=== PATIENT | female | born 2000 | race Asian ===

== ENCOUNTER 2020-05-02 21:02 | Emergency (ER) | payer OTHER, SELFPAY ==
[2020-05-02] VITALS (7 sets, daily range): BP systolic 95–111; BP diastolic 50–67; PULSE 42–98; RESP 18–29; TEMP 36.6; O2SAT 96–99; BMI 19.4
[2020-05-02 21:45] LABS: INR 1.2 (0.9-1.3); Prothrombin Time 14.2 SECONDS (10.1-12.7)
[2020-05-02 21:48] LABS: PTT Partial Thromboplastin Tim 25 SECONDS (26.4-36.2)
[2020-05-02 21:57] LABS: Add Manual Diff / Slide Review NO; Basophils Absolute Auto 0 /uL (0-100); Basophils Percent Auto 0.2 % (0-2); Eosinophils Absolute Auto 0 /uL (0-450); Eosinophils Percent Auto 0.1 % (2-4); Hematocrit 43.3 % (36-46); Hemoglobin 14.1 g/dL (12.0-16.0); Lymphocytes Absolute Auto 600 /uL (1100-4500); Lymphocytes Percent Auto 4.8 % (25-40); Mean Corpuscular HGB Conc 32.7 % (30-36); Mean Corpuscular Volume 85.7 fL (80-100); Monocytes Absolute Auto 300 /uL (0-900); Monocytes Percent Auto 2.4 % (3-14); Neutrophils Absolute Auto 12300 /uL (1500-7000); Neutrophils Percent Auto 92.5 % (50-75); Platelet Count 255 X10^3/uL (150-400); Red Blood Cell Count 5.05 X10^6/uL (4.0-5.2); Red Cell Distribution Width 13.6 % (11.6-14.8); White Blood Cell Count 13.3 X10^3/uL (4.5-11.0)
[2020-05-02] MEDS: SODIUM CHLORIDE 0.9% 1,000 ML 1000 ML IV (22:06)
[2020-05-02 22:07] LABS: Alanine Aminotransferase 15 IU/L (<35); Albumin Globulin Ratio 1.5 (1.0-2.8); Alkaline Phosphatase 62 U/L (38-126); Aspartate Aminotransferase 33 IU/L (14-36); BUN Creatinine Ratio 21.3 (6-22); Bilirubin Total 0.8 mg/dL (0.2-1.3); Blood Urea Nitrogen 13 mg/dL (7-17); Calcium 9.5 mg/dL (8.4-10.2); Carbon Dioxide 23 mmol/L (22-32); Chloride 107 mmol/L (98-107); Estimated Glomerular Filt Rate > 60.0 mL/min (>60); Globulin 3.4 g/dL (1.7-4.1); Glucose 118 mg/dL (70-100); HEMOLYSIS 52 (0-50); Lipase 57 U/L (23-300); Sodium 142 mmol/L (137-145); Total Protein 8.4 g/dL (6.3-8.2)
--- NOTE | 2020-05-02 23:00 | ED.NAVMDI ---
HPI - Nausea/Vomiting/Diarrhea General Chief complaint: Nausea/Vomiting/Diarrhea Stated complaint: vomiting Time Seen by Provider: 05/02/20 22:36 Source: patient Mode of arrival: Ambulatory Limitations: no limitations History of Present Illness HPI Narrative: Patient here with boyfriend. Complains numerous episodes of nonbloody emesis starting about 11 hours ago. Feeling better now. History of anorexia and bulimia. However today she was not trying to induce any vomiting. Was not anxious. No recent illness. No cough cold congestion. LMP 2 days ago. Denies . No urinary complaints. Does smoke marijuana daily since 16 years of age. Denies abdominal pain except for when no vomiting. MD complaint: nausea and vomiting Related Data Home Medications Medication Instructions Recorded Confirmed albuterol sulfate [Proventil HFA] 0.09 mg IH PRN #0 11/21/10 Previous Rx's Medication Instructions Recorded citalopram 30 mg PO QAM #45 tab 11/04/16 alprazolam 0 mg PO Q8HP PRN #10 tab 11/26/16 ondansetron 4 mg PO Q8H PRN #10 tab 05/03/20 pantoprazole [Protonix] 40 mg PO DAILY #14 tab 05/03/20 Allergies Allergy/AdvReac Type Severity Reaction Status Date / Time aspirin [ASPIRIN] Allergy Intermediate Verified 05/03/20 01:18 penicillin G [PENICILLIN G] Allergy Intermediate Verified 05/03/20 01:18 Review of Systems Review of Systems Narrative: GENERAL: Denies chills, fatigue, malaise, fever, sweats. HEENT: Denies sinus pain, ear pain, sore throat, difficulty swallowing, dizziness. RESPIRATORY: Denies dyspnea, cough, wheezing, hemoptysis, sputum. CARDIOVASCULAR: Denies chest pain, palpitations, orthopnea, edema, GASTROINTESTINAL: Complains nausea, vomiting, denies abdominal pain, diarrhea, constipation, melena. : Denies dysuria, frequency, incontinence, hematuria, urinary retention. MUSCULOSKELETAL: denies weakness, joint pain, or bony pain SKIN: Denies rash, skin lesions NEUROLOGIC: Denies weakness, headache, numbness, change in speech, confusion, seizures, incoordination. PSYCHIATRIC: No concerning psychosocial issues. ROS Unobtainable: All systems reviewed & are unremarkable except as noted in HPI and below Patient History Social History Smoking Status: Current every day smoker Smoking Status: Current every day smoker tobacco type: vaping alcohol intake frequency: a few times a week Substance Use Type: marijuana Exam Narrative Exam Narrative: GENERAL: patient appears stated age. Well-nourished, well-developed patient, in no distress, not toxic HEAD: Atraumatic. Normocephalic. EYES: Pupils equal round and reactive. Extraocular motions intact. No scleral icterus. No injection or drainage. ENT: Nose without bleeding, purulent drainage. Throat without erythema, tonsillar hypertrophy or exudate. Airway patent. NECK: Trachea midline. Non tender CARDIOVASCULAR: Regular rate and rhythm without murmurs, gallops, or rubs. RESPIRATORY: Clear to auscultation. Breath sounds equal bilaterally. No wheezes, rales, or rhonchi. GASTROINTESTINAL: Abdomen soft, non-tender, nondistended. EXTREMITIES: No edema or joint tenderness. BACK: Nontender without deformity or crepitance. No flank tenderness. NEURO: AOx4. SKIN: No rash or erythema of visible areas PSYCH: Not anxious, is cooperative Initial Vital Signs Initial Vital Signs: Vital Signs Temperature 98 F 05/02/20 21:12 Pulse Rate 98 H 05/02/20 21:12 Respiratory Rate 18 05/02/20 21:12 Blood Pressure 111/55 L 05/02/20 21:12 Pulse Oximetry 98 05/02/20 21:12 Course Course Course Narrative: Patient able tolerate p.o. during stay here after IV fluids and Zofran Orders Ordered: ED Orders 05/02/20 21:31 Complete Blood Count AUTO DIFF Stat Comprehensive Metabolic Panel Stat Lipase Stat Partial Thromboplastin Time Stat Prothrombin Time INR Stat 05/02/20 23:50 Urine Microscopic Stat Discontinued Medications Sodium Chloride (Normal Saline 0.9%) 1,000 mls @ 1,000 mls/hr IV BOLUS ONE Stop: 05/02/20 23:01 Last Infusion: 05/02/20 23:59 Dose: 0 mls/hr Documented by: Admin: 05/02/20 22:06 Dose: 1,000 mls/hr Documented by: MICHELLE Sodium Chloride (Normal Saline 0.9%) 1,000 mls @ 1,000 mls/hr IV BOLUS ONE Stop: 05/03/20 01:26 Last Infusion: 05/03/20 01:37 Dose: 0 mls/hr Documented by: Admin: 05/03/20 00:35 Dose: 1,000 mls/hr Documented by: DUY Ondansetron HCl (Zofran) 4 mg IV NOW ONE Stop: 05/02/20 23:00 Last Admin: 05/02/20 23:06 Dose: 4 mg Documented by: JOHNATHAN Pantoprazole Sodium (Protonix) 40 mg IV NOW ONE Stop: 05/03/20 00:28 Last Admin: 05/03/20 00:35 Dose: 40 mg Documented by: DUY Reevaluation(s) Reevaluation #1: Feeling much better after IV fluids Zofran. is eating. Desires 1 more L of normal saline after review of urinalysis with ketones Time: 00:29 Vital Signs Vital signs: Vital Signs - 8 hr 05/02/20 21:12 05/02/20 21:58 05/02/20 21:59 Temperature 98 F Pulse Rate 98 H 51 L Respiratory Rate 18 Blood Pressure 111/55 L 99/52 L Pulse Oximetry 98 96 98 05/02/20 22:00 05/02/20 22:30 05/02/20 23:00 Temperature Pulse Rate 53 L 42 L 45 L Respiratory Rate 29 H 19 Blood Pressure 95/50 L 104/59 L 104/67 Pulse Oximetry 98 99 98 05/02/20 23:30 05/03/20 00:00 05/03/20 00:03 Temperature Pulse Rate 50 L 58 L Respiratory Rate 21 21 Blood Pressure 101/59 L 96/56 L Pulse Oximetry 99 100 05/03/20 00:30 05/03/20 01:00 05/03/20 01:30 Temperature Pulse Rate 52 L 50 L 47 L Respiratory Rate 23 19 19 Blood Pressure 98/55 L 100/51 L 96/59 L Pulse Oximetry 98 99 99 MDM - Nausea/Vomiting/Diarrhea Differential Diagnosis Differential diagnosis: Likely gastroenteritis and other (Cannabis hyperemesis syndrome) Lab Data Attestation: I reviewed the patient's lab results. Result diagrams: 05/02/20 21:31 05/02/20 21:31 Labs: Lab Results 10/08/20 10/08/20 10/08/20 Range/Units 21:31 21:31 21:31 WBC 13.3 H (4.5-11.0) X10^3/uL RBC 5.05 (4.0-5.2) X10^6/uL Hgb 14.1 (12.0-16.0) g/dL Hct 43.3 (36-46) % MCV 85.7 (80-100) fL MCH 28.0 (26-34) PG MCHC 32.7 (30-36) % RDW 13.6 (11.6-14.8) % Plt Count 255 (150-400) X10^3/uL Neut % (Auto) 92.5 H (50-75) % Lymph % (Auto) 4.8 L (25-40) % [place] % (Auto) 2.4 L (3-14) % Eos % (Auto) 0.1 L (2-4) % Baso % (Auto) 0.2 (0-2) % Neut # (Auto) 85746 H (1342-7244) /uL Lymph # (Auto) 600 L (3841-7959) /uL [place] # (Auto) 300 (0-900) /uL Eos # (Auto) 0 (0-450) /uL Baso # (Auto) 0 (0-100) /uL PT 14.2 H (10.1-12.7) SECONDS INR 1.2 (0.9-1.3) APTT 25 L (26.4-36.2) SECONDS Sodium 142 (137-145) mmol/L Potassium 4.0 (3.4-5.1) mmol/L Chloride 107 (98-107) mmol/L Carbon Dioxide 23 (22-32) mmol/L BUN 13 (7-17) mg/dL Creatinine 0.61 (0.52-1.04) mg/dL Estimated GFR > 60.0 (>60) mL/min BUN/Creatinine Ratio 21.3 (6-22) Glucose 118 H (70-100) mg/dL Calcium 9.5 (8.4-10.2) mg/dL Total Bilirubin 0.8 (0.2-1.3) mg/dL AST 33 (14-36) IU/L ALT 15 (<35) IU/L Alkaline Phosphatase 62 (38-126) U/L Total Protein 8.4 H (6.3-8.2) g/dL Albumin 5.0 (3.5-5.0) g/dL Globulin 3.4 (1.7-4.1) g/dL Albumin/Globulin Ratio 1.5 (1.0-2.8) Lipase 57 (23-300) U/L Urine RBC (0-5/HPF) Urine WBC (0-5/HPF) Ur Squamous Epith Cells (0-5/HPF) Urine Bacteria (None) Urine Mucus (Negative) Ur Culture Indicated? 05/02/20 Range/Units 23:50 WBC (4.5-11.0) X10^3/uL RBC (4.0-5.2) X10^6/uL Hgb (12.0-16.0) g/dL Hct (36-46) % MCV (80-100) fL MCH (26-34) PG MCHC (30-36) % RDW (11.6-14.8) % Plt Count (150-400) X10^3/uL Neut % (Auto) (50-75) % Lymph % (Auto) (25-40) % [place] % (Auto) (3-14) % Eos % (Auto) (2-4) % Baso % (Auto) (0-2) % Neut # (Auto) (6599-6984) /uL Lymph # (Auto) (7695-1592) /uL [place] # (Auto) (0-900) /uL Eos # (Auto) (0-450) /uL Baso # (Auto) (0-100) /uL PT (10.1-12.7) SECONDS INR (0.9-1.3) APTT (26.4-36.2) SECONDS Sodium (137-145) mmol/L Potassium (3.4-5.1) mmol/L Chloride (98-107) mmol/L Carbon Dioxide (22-32) mmol/L BUN (7-17) mg/dL Creatinine (0.52-1.04) mg/dL Estimated GFR (>60) mL/min BUN/Creatinine Ratio (6-22) Glucose (70-100) mg/dL Calcium (8.4-10.2) mg/dL Total Bilirubin (0.2-1.3) mg/dL AST (14-36) IU/L ALT (<35) IU/L Alkaline Phosphatase (38-126) U/L Total Protein (6.3-8.2) g/dL Albumin (3.5-5.0) g/dL Globulin (1.7-4.1) g/dL Albumin/Globulin Ratio (1.0-2.8) Lipase (23-300) U/L Urine RBC 1-5/hpf (0-5/HPF) Urine WBC 1-5/hpf (0-5/HPF) Ur Squamous Epith Cells 0-1 /hpf (0-5/HPF) Urine Bacteria Few (2-10) H (None) Urine Mucus 2+ H (Negative) Ur Culture Indicated? Cult not indicated Point of Care Testing Test Results Negative Urine Dip Bedside Urine Glucose Negative Bedside Urine Bilirubin - Negative Bedside Urine Ketone +++ 80 Urine Specific [place] 1.015 Bedside Urine Occult Blood +++ Bedside Urine pH 7.0 Bedside Urine Protein + 30 Bedside Urine Urobilinogen - Negative Bedside Urine Nitrite - Negative Bedside Urine Leukocytes - Negative Esterase ECG Data Attestation: I personally reviewed and interpreted this ECG as follows: Interpretation: Sinus bradycardia rate [address] elevation or depression. MDM Narrative Medical decision making narrative: White count noted. No fever. Nonspecific leukocytosis may be due to demargination with emesis. Abdomen is soft nontender. No peritoneal signs. No McBurney point tenderness. No CT indicated this time. Appropriate for discharge home. Discharge Plan Departure Patient Disposition: Home Clinical Impression: Acute gastritis Qualifiers: Gastritis type: unspecified gastritis Gastritis bleeding: without bleeding Qualified Code(s): K29.00 - Acute gastritis without bleeding Discharge Date/Time: 05/03/20 01:39 Instructions: DI for Gastritis, DI for Vomiting -- Adult Activity Restrictions/Additional Instructions: Return if worse. Keep well hydrated. See family doctor in a week for recheck. Called provided clinic number tomorrow for office appointment. Return if worse or if any questions or concerns. Prescription sent to [facility] pharmacy here in [facility] Prescriptions: New pantoprazole [Protonix] 40 mg tablet,delayed release (DR/EC) 40 mg PO DAILY Qty: 14 RF: 0 ondansetron 4 mg tablet,disintegrating 4 mg PO Q8H PRN (Reason: nausea and vomiting) Qty: 10 RF: 0 No Action albuterol sulfate [Proventil HFA] 90 MCG/PUFF HFA aerosol inhaler 0.09 mg IH PRN Qty: 0 RF: 0 citalopram 20 MG tablet 30 mg PO QAM Qty: 45 RF: 2 alprazolam 0.25 MG tablet 0 mg PO Q8HP PRNQty: 10 RF: 0 Referrals: [facility] [Outside]
[2020-05-02] MEDS: ONDANSETRON 4 MG/2 ML INJ IV (23:06)
[2020-05-03] VITALS: PULSE 50; RESP 21; O2SAT 99
[2020-05-03 00:03] VITALS: BP 96/56; PULSE 58; RESP 21; O2SAT 100
[2020-05-03 00:30] VITALS: BP 98/55; PULSE 52; RESP 23; O2SAT 98
[2020-05-03 00:30] LABS: Bacteria Urine Few (2-10); Culture Indicated Urine Cult Not Indicated; Mucus Urine 2+ (Negative); RBC Urine 1-5/HPF (0-5/HPF); Squamous Epithelial Cell Urine 0-1 /HPF (0-5/HPF); WBC Urine 1-5/HPF (0-5/HPF)
[2020-05-03] MEDS: PANTOPRAZOLE 40 MG VIAL IV (00:35)
[2020-05-03] MEDS: SODIUM CHLORIDE 0.9% 1,000 ML 1000 ML IV (00:35)
[2020-05-03 01:00] VITALS: BP 100/51; PULSE 50; RESP 19; O2SAT 99
[2020-05-03 01:30] VITALS: BP 96/59; PULSE 47; RESP 19; O2SAT 99
== END 2020-05-03 01:39 | disposition home or self-care (01) ==
PROVIDERS: Emergency Provider Emergency Medicine; Family Provider Family Medicine
DX: K29.00 Acute gastritis without bleeding (principal); R11.2 Nausea with vomiting, unspecified
CPT/HCPCS: 36415; 80053; 81003; 81015; 81025; 83690; 85025; 85610; 85730; 93005; 96361; 96374; 96375; 99284; C9113; J2405

== ENCOUNTER 2021-03-02 22:27 | Emergency (ER) | payer OTHER, SELFPAY ==
[2021-03-02 22:39] VITALS: BP 151/109; PULSE 87; RESP 20; TEMP 36.6; O2SAT 100
[2021-03-02 23:02] LABS: Add Manual Diff / Slide Review NO; Basophils Absolute Auto 100 /uL (0-100); Basophils Percent Auto 0.5 % (0-2); Eosinophils Absolute Auto 200 /uL (0-450); Eosinophils Percent Auto 2.1 % (2-4); Hematocrit 39.9 % (36-46); Hemoglobin 13.5 g/dL (12.0-16.0); Lymphocytes Absolute Auto 1800 /uL (1100-4500); Lymphocytes Percent Auto 16.7 % (25-40); Mean Corpuscular HGB Conc 33.7 % (30-36); Mean Corpuscular Hemoglobin 27.8 PG (26-34); Mean Corpuscular Volume 82.6 fL (80-100); Monocytes Absolute Auto 1100 /uL (0-900); Monocytes Percent Auto 10.1 % (3-14); Neutrophils Absolute Auto 7700 /uL (1500-7000); Neutrophils Percent Auto 70.6 % (50-75); Platelet Count 315 X10^3/uL (150-400); Red Blood Cell Count 4.83 X10^6/uL (4.0-5.2); Red Cell Distribution Width 13.5 % (11.6-14.8); White Blood Cell Count 10.8 X10^3/uL (4.5-11.0)
[2021-03-02] MEDS: ONDANSETRON 4 MG/2 ML INJ IV (23:07)
[2021-03-02] MEDS: SODIUM CHLORIDE 0.9% 1,000 ML 1000 ML IV (23:07)
[2021-03-02 23:11] LABS: Alanine Aminotransferase 15 IU/L (<35); Albumin 4.6 g/dL (3.5-5.0); Albumin Globulin Ratio 1.4 (1.0-2.8); Alkaline Phosphatase 81 U/L (38-126); Aspartate Aminotransferase 29 IU/L (14-36); BUN Creatinine Ratio 14.5 (6-22); Bilirubin Total 0.6 mg/dL (0.2-1.3); Blood Urea Nitrogen 8 mg/dL (7-17); Calcium 9.6 mg/dL (8.4-10.2); Carbon Dioxide 19 mmol/L (22-32); Chloride 107 mmol/L (98-107); Estimated Glomerular Filt Rate > 60.0 mL/min (>60); Globulin 3.3 g/dL (1.7-4.1); Glucose 121 mg/dL (70-100); HEMOLYSIS < 15 (0-50); Lipase 101 U/L (23-300); Potassium 3.1 mmol/L (3.4-5.1); Sodium 138 mmol/L (137-145); Total Protein 7.9 g/dL (6.3-8.2)
[2021-03-03] VITALS (17 sets, daily range): BP systolic 96–125; BP diastolic 50–70; PULSE 50–101; RESP 14–23; TEMP 36.4; O2SAT 94–100
--- NOTE | 2021-03-03 03:32 | ED_ITS ---
HPI - Abdominal Pain <Dinora Kilpatrick DO - Last Filed: 03/04/21 12:11> General Chief Complaint: Abdominal Pain Stated Complaint: ABD PAIN Time Seen by Provider: 03/03/21 02:56 Source: patient Mode of arrival: Ambulatory Limitations: no limitations History of Present Illness HPI narrative: This is a 20-year-old female who is brought to the emergency department for abdominal pain and nausea vomiting. Patient has had intermittent abdominal pains for some time. They were seen here once prior to April 2020 for similar symptoms. Patient has on and off had continuing symptoms but has required coming to the emergency department. Patient states they felt hot on and off and had hot flashes recently. Patient complains of upper abdominal discomfort. Does not radiate to the back. Of patient has had normal bowel movements with no diarrhea constipation. No dysuria, urgency or frequency. No vaginal bleeding or discharge. Patient does take quetiapine for reported ADHD and PTSD. Patient does have a history of anorexia bulimia per prior report. New surgeries. No other daily medications. Patient does use tobacco, occasional alcohol. Patient does use marijuana daily for abdominal symptoms and in order to eat because they are nauseated so frequently. Patient has an allergy to penicillin. They are accompanied by their roommate. Related Data Home Medications Medication Instructions Recorded Confirmed albuterol sulfate 90 mcg/actuation 0.09 mg IH PRN #0 11/21/10 11/08/20 aerosol inhaler (Proventil HFA) quetiapine 100 mg tablet 100 mg PO tab 11/08/20 11/08/20 Previous Rx's Medication Instructions Recorded ondansetron 4 mg disintegrating 4 mg PO Q6H PRN #14 tab 03/03/21 tablet Allergies Allergy/AdvReac Type Severity Reaction Status Date / Time aspirin [ASPIRIN] Allergy Intermediate Verified 11/08/20 09:35 penicillin G [PENICILLIN G] Allergy Intermediate Verified 11/08/20 09:35 horse dander Allergy Mild Verified 11/08/20 09:35 kiwi Allergy Mild swelling Verified 11/08/20 09:35 and tongue blisters Review of Systems <Dinora Kilpatrick DO - Last Filed: 03/04/21 12:11> Review of Systems ROS Unobtainable: All systems reviewed & are unremarkable except as noted in HPI and below Patient History <Dinora Kilpatrick DO - Last Filed: 03/04/21 12:11> Medical History ADHD Headache Heavy menstrual period (~2014) Irregular menstrual cycle (~2015) Migraines Osteopenia (~2018) Overdose Painful menstrual periods (~2014) Scoliosis (~2018) Shoulder pain (~2014) Suicidal intent Vasovagal syncope Family History (Updated 12/09/20 @ 21:07 by Josette Causey) Mother Ovarian cancer Social History Smoking Status: Current every day smoker Tobacco: How many years used: 3 Smokeless tobacco user: other (nicotine vape 6mg ) quit status: considering quitting alcohol intake: current (1 glass of wine / 3 months ) substance use type: marijuana (Uses for pain and anxiety ) Smoking Status: Current every day smoker tobacco type: vaping alcohol intake frequency: a few times a week Substance Use Type: marijuana Exam <Dinora Kilpatrick DO - Last Filed: 03/04/21 12:11> Narrative Exam Narrative: GENERAL: Alert and oriented x three, thin female in moderate distress. Patient was early are ambulating in the department and looked fairly well on exam in the room she is dry heaving in the room at this time. HEENT: Head normocephalic, atraumatic, EOMI, pupils reactive, face symmetric, moist mucous membranes NECK: Supple, full range of motion CARDIOVASCULAR: Regular rate and rhythm without murmurs, rubs or gallops. RESPIRATORY: Breath sounds equal bilaterally, no wheezes rales or rhonchi. ABDOMEN: Soft, nontender to palpation. Nondistended. Normoactive bowel sounds all 4 quadrants. No guarding or rebound, rigidity, no mass : No CVA tenderness EXTREMITIES: Normal range of motion, no clubbing or edema. Neurovascularly intact NEUROLOGICAL: Cranial nerves II through XII grossly intact. Moving all extremities SKIN: Warm, dry, no petechiae, no rashes or lesions. Initial Vital Signs Initial Vital Signs: Vital Signs Temperature 97.8 F 03/02/21 22:39 Pulse Rate 87 03/02/21 22:39 Respiratory Rate 20 03/02/21 22:39 Blood Pressure 151/109 H 03/02/21 22:39 Pulse Oximetry 100 03/02/21 22:39 <Henri Brian DO - Last Filed: 03/03/21 09:54> Initial Vital Signs Initial Vital Signs: Vital Signs Temperature 97.8 F 03/02/21 22:39 Pulse Rate 87 03/02/21 22:39 Respiratory Rate 20 03/02/21 22:39 Blood Pressure 151/109 H 03/02/21 22:39 Pulse Oximetry 100 03/02/21 22:39 Course <Dinora Kilpatrick DO - Last Filed: 03/04/21 12:11> Orders Ordered: Discontinued Medications Diphenhydramine HCl (Diphenhydramine 50 Mg/Ml Vial) 25 mg IV NOW ONE Stop: 03/03/21 04:49 Last Admin: 03/03/21 04:56 Dose: 25 mg Documented by: MICHELLE Haloperidol (Haloperidol 5 Mg/Ml Vial) 5 mg IV NOW ONE Stop: 03/03/21 04:49 Last Admin: 03/03/21 04:56 Dose: 5 mg Documented by: MICHELLE Sodium Chloride (Normal Saline 0.9%) 1,000 mls @ 1,000 mls/hr IV BOLUS ONE Stop: 03/02/21 23:55 Last Infusion: 03/03/21 00:02 Dose: 0 mls/hr Documented by: Admin: 03/02/21 23:07 Dose: 1,000 mls/hr Documented by: MICHELLE Sodium Chloride (Normal Saline 0.9%) 1,000 mls @ 1,000 mls/hr IV BOLUS ONE Stop: 03/03/21 06:05 Last Infusion: 03/03/21 06:46 Dose: 0 mls/hr Documented by: Admin: 03/03/21 05:08 Dose: 1,000 mls/hr Documented by: MICHELLE POTASSIUM CHLORIDE IN WATER (Potassium Cl 10 Meq/100 Ml Abigail) 10 meq in 100 mls @ 100 mls/hr IV Q1H GRIS Stop: 03/03/21 09:14 Last Infusion: 03/03/21 09:37 Dose: 0 mls/hr Documented by: Admin: 03/03/21 08:34 Dose: 100 mls/hr Documented by: MARIO ALBERTO Infusion: 03/03/21 08:25 Dose: 100 mls/hr Documented by: MARIO ALBERTO Admin: 03/03/21 07:25 Dose: 100 mls/hr Documented by: MARIO ALBERTO Infusion: 03/03/21 07:17 Dose: 100 mls/hr Documented by: MARIO ALBERTO Admin: 03/03/21 06:17 Dose: 100 mls/hr Documented by: Infusion: 03/03/21 06:17 Dose: 0 mls/hr Documented by: Admin: 03/03/21 05:11 Dose: 100 mls/hr Documented by: MICHELLE Ketorolac Tromethamine (Ketorolac 30 Mg/Ml Vial) 30 mg IV NOW ONE Stop: 03/03/21 03:31 Last Admin: 03/03/21 03:41 Dose: Not Given Documented by: MICHELLE Lorazepam (Lorazepam 2 Mg/Ml Inj) 1 mg IV NOW ONE Stop: 03/03/21 05:09 Last Admin: 03/03/21 05:10 Dose: 1 mg Documented by: MICHELLE Ondansetron HCl (Ondansetron 4 Mg/2 Ml Inj) 4 mg IV NOW ONE Stop: 03/02/21 22:57 Last Admin: 03/02/21 23:07 Dose: 4 mg Documented by: MICHELLE Ondansetron HCl (Ondansetron 4 Mg/2 Ml Inj) 4 mg IV NOW ONE Stop: 03/03/21 03:31 Last Admin: 03/03/21 03:35 Dose: 4 mg Documented by: MICHELLE Pantoprazole Sodium (Pantoprazole 40 Mg Vial) 40 mg IV NOW ONE Stop: 03/03/21 03:32 Last Admin: 03/03/21 03:35 Dose: 40 mg Documented by: MICHELLE Reevaluation(s) Reevaluation #1: Patient was feeling improved after 2nd round of Zofran and Protonix. Patient symptoms had resolved. During our discussion patient felt like the symptoms were starting to come back. We discussed trying a different medication that and that there is the possibility of hyperemesis cannibus component as she uses marijuana quite frequently so Benadryl and Haldol was ordered. Patient seemed to have a dystonic reaction to the medication wanting to pull off everything off but atypically she became diaphoretic. Patient was given some Ativan. She had some improvement after fluids were started and she had had some known mild hypokalemia so this was replaced as well. Patient's repeat EKG continues to show a sinus bradycardia, QTC reviewed. Patient felt much better after Ativan. Continue to monitor here in the department and patient signed out to Dr. Brian while completing potassium replacement IV and for repeat evaluation and final disposition. Patient and roomate at bedside and I discussed that I suspect she reacted to the Haldol although she did also receive benadryl and should avoid this medication in the future. Vital Signs Vital signs: Vital Signs - 8 hr 03/03/21 02:27 03/03/21 04:29 03/03/21 04:30 Temperature 97.5 F L Pulse Rate 63 76 Respiratory Rate 18 Blood Pressure 111/54 L 114/63 Pulse Oximetry 99 100 100 03/03/21 04:32 03/03/21 05:00 03/03/21 05:06 Temperature Pulse Rate 71 80 63 Respiratory Rate 19 Blood Pressure 107/53 L 110/70 98/50 L Pulse Oximetry 100 100 94 03/03/21 05:30 03/03/21 05:33 03/03/21 06:00 Temperature Pulse Rate 101 H 53 L 50 L Respiratory Rate 23 15 14 Blood Pressure 106/51 L 96/51 L Pulse Oximetry 99 100 100 03/03/21 06:30 03/03/21 07:00 03/03/21 07:30 Temperature Pulse Rate 52 L 52 L 55 L Respiratory Rate 14 14 18 Blood Pressure 96/54 L 99/58 L Pulse Oximetry 99 99 99 03/03/21 07:31 03/03/21 08:00 03/03/21 08:30 Temperature Pulse Rate 51 L 51 L 59 L Respiratory Rate 17 17 17 Blood Pressure 121/57 L 122/56 L 109/66 Pulse Oximetry 100 100 99 03/03/21 09:00 03/03/21 09:30 Temperature Pulse Rate 63 70 Respiratory Rate 15 23 Blood Pressure 125/63 106/56 L Pulse Oximetry 100 100 <Henri Brian, DO - Last Filed: 03/03/21 09:54> Orders Ordered: Discontinued Medications Diphenhydramine HCl (Diphenhydramine 50 Mg/Ml Vial) 25 mg IV NOW ONE Stop: 03/03/21 04:49 Last Admin: 03/03/21 04:56 Dose: 25 mg Documented by: MICHELLE Haloperidol (Haloperidol 5 Mg/Ml Vial) 5 mg IV NOW ONE Stop: 03/03/21 04:49 Last Admin: 03/03/21 04:56 Dose: 5 mg Documented by: MICHELLE Sodium Chloride (Normal Saline 0.9%) 1,000 mls @ 1,000 mls/hr IV BOLUS ONE Stop: 03/02/21 23:55 Last Infusion: 03/03/21 00:02 Dose: 0 mls/hr Documented by: Admin: 03/02/21 23:07 Dose: 1,000 mls/hr Documented by: MICHELLE Sodium Chloride (Normal Saline 0.9%) 1,000 mls @ 1,000 mls/hr IV BOLUS ONE Stop: 03/03/21 06:05 Last Infusion: 03/03/21 06:46 Dose: 0 mls/hr Documented by: Admin: 03/03/21 05:08 Dose: 1,000 mls/hr Documented by: MICHELLE POTASSIUM CHLORIDE IN WATER (Potassium Cl 10 Meq/100 Ml Abigail) 10 meq in 100 mls @ 100 mls/hr IV Q1H GRIS Stop: 03/03/21 09:14 Last Infusion: 03/03/21 09:37 Dose: 0 mls/hr Documented by: Admin: 03/03/21 08:34 Dose: 100 mls/hr Documented by: MARIO ALBERTO Infusion: 03/03/21 08:25 Dose: 100 mls/hr Documented by: MARIO ALBERTO Admin: 03/03/21 07:25 Dose: 100 mls/hr Documented by: MARIO ALBERTO Infusion: 03/03/21 07:17 Dose: 100 mls/hr Documented by: MARIO ALBERTO Admin: 03/03/21 06:17 Dose: 100 mls/hr Documented by: Infusion: 03/03/21 06:17 Dose: 0 mls/hr Documented by: Admin: 03/03/21 05:11 Dose: 100 mls/hr Documented by: MICHELLE Ketorolac Tromethamine (Ketorolac 30 Mg/Ml Vial) 30 mg IV NOW ONE Stop: 03/03/21 03:31 Last Admin: 03/03/21 03:41 Dose: Not Given Documented by: MICHELLE Lorazepam (Lorazepam 2 Mg/Ml Inj) 1 mg IV NOW ONE Stop: 03/03/21 05:09 Last Admin: 03/03/21 05:10 Dose: 1 mg Documented by: MICHELLE Ondansetron HCl (Ondansetron 4 Mg/2 Ml Inj) 4 mg IV NOW ONE Stop: 03/02/21 22:57 Last Admin: 03/02/21 23:07 Dose: 4 mg Documented by: MICHELLE Ondansetron HCl (Ondansetron 4 Mg/2 Ml Inj) 4 mg IV NOW ONE Stop: 03/03/21 03:31 Last Admin: 03/03/21 03:35 Dose: 4 mg Documented by: MICHELLE Pantoprazole Sodium (Pantoprazole 40 Mg Vial) 40 mg IV NOW ONE Stop: 03/03/21 03:32 Last Admin: 03/03/21 03:35 Dose: 40 mg Documented by: MICHELLE Reevaluation(s) Reevaluation #1: Patient was feeling improved after 2nd round of Zofran and Protonix. Patient symptoms had resolved. During our discussion patient felt like the symptoms were starting to come back. We discussed trying a different medication that they do use marijuana quite frequently so Benadryl and Haldol was ordered. Patient seemed to have a reaction to the medication. She became diaphoretic and quite uncomfortable and wanted to run away and take everything off. Patient was given some Ativan. She had some improvement fluids were started and she had had some mild hypokalemia so this was replaced as well. Patient's repeat EKG continues to show a sinus bradycardia, QTC is 465. Patient felt much better after Ativan. Continue to monitor here in the department. Vital Signs Vital signs: Vital Signs - 8 hr 03/03/21 02:27 03/03/21 04:29 03/03/21 04:30 Temperature 97.5 F L Pulse Rate 63 76 Respiratory Rate 18 Blood Pressure 111/54 L 114/63 Pulse Oximetry 99 100 100 03/03/21 04:32 03/03/21 05:00 03/03/21 05:06 Temperature Pulse Rate 71 80 63 Respiratory Rate 19 Blood Pressure 107/53 L 110/70 98/50 L Pulse Oximetry 100 100 94 03/03/21 05:30 03/03/21 05:33 03/03/21 06:00 Temperature Pulse Rate 101 H 53 L 50 L Respiratory Rate 23 15 14 Blood Pressure 106/51 L 96/51 L Pulse Oximetry 99 100 100 03/03/21 06:30 03/03/21 07:00 03/03/21 07:30 Temperature Pulse Rate 52 L 52 L 55 L Respiratory Rate 14 14 18 Blood Pressure 96/54 L 99/58 L Pulse Oximetry 99 99 99 03/03/21 07:31 03/03/21 08:00 03/03/21 08:30 Temperature Pulse Rate 51 L 51 L 59 L Respiratory Rate 17 17 17 Blood Pressure 121/57 L 122/56 L 109/66 Pulse Oximetry 100 100 99 03/03/21 09:00 03/03/21 09:30 Temperature Pulse Rate 63 70 Respiratory Rate 15 23 Blood Pressure 125/63 106/56 L Pulse Oximetry 100 100 MDM - Abdominal Pain <Dinora Kilpatrick, DO - Last Filed: 03/04/21 12:11> Lab Data Result diagrams: 03/02/21 22:50 03/02/21 22:50 Labs: Lab Results 03/02/21 03/02/21 Range/Units 22:50 22:50 WBC 10.8 (4.5-11.0) X10^3/uL RBC 4.83 (4.0-5.2) X10^6/uL Hgb 13.5 (12.0-16.0) g/dL Hct 39.9 (36-46) % MCV 82.6 (80-100) fL MCH 27.8 (26-34) PG MCHC 33.7 (30-36) % RDW 13.5 (11.6-14.8) % Plt Count 315 (150-400) X10^3/uL Neut % (Auto) 70.6 (50-75) % Lymph % (Auto) 16.7 L (25-40) % Kendall % (Auto) 10.1 (3-14) % Eos % (Auto) 2.1 (2-4) % Baso % (Auto) 0.5 (0-2) % Neut # (Auto) 7700 H (4030-0272) /uL Lymph # (Auto) 1800 (1731-6444) /uL Kendall # (Auto) 1100 H (0-900) /uL Eos # (Auto) 200 (0-450) /uL Baso # (Auto) 100 (0-100) /uL Sodium 138 (137-145) mmol/L Potassium 3.1 L (3.4-5.1) mmol/L Chloride 107 (98-107) mmol/L Carbon Dioxide 19 L (22-32) mmol/L BUN 8 (7-17) mg/dL Creatinine 0.55 (0.52-1.04) mg/dL Estimated GFR > 60.0 (>60) mL/min BUN/Creatinine Ratio 14.5 (6-22) Glucose 121 H (70-100) mg/dL Calcium 9.6 (8.4-10.2) mg/dL Total Bilirubin 0.6 (0.2-1.3) mg/dL AST 29 (14-36) IU/L ALT 15 (<35) IU/L Alkaline Phosphatase 81 (38-126) U/L Total Protein 7.9 (6.3-8.2) g/dL Albumin 4.6 (3.5-5.0) g/dL Globulin 3.3 (1.7-4.1) g/dL Albumin/Globulin Ratio 1.4 (1.0-2.8) Lipase 101 (23-300) U/L Point of care testing: Point of Care Testing Test Results Negative Urine Dip Bedside Urine Glucose Negative Bedside Urine Bilirubin - Negative Bedside Urine Ketone + 15 Urine Specific [place] 1.025 Bedside Urine Occult Blood - Negative Bedside Urine pH 6 Bedside Urine Protein - Negative Bedside Urine Urobilinogen - Negative Bedside Urine Nitrite - Negative Bedside Urine Leukocytes - Negative Esterase Imaging Data Abdominal x-ray: Radiologist's Impression: Nonspecific that abdomen series. No chest or abdominal abnormality identified. ECG Data Attestation: I personally reviewed and interpreted this ECG as follows: Prior ECG tracings: available for review Interpretation: Sinus bradycardia rate 59, MT 184 QRS 84 and QTC of 423. No acute ST changes appreciated. Sinus bradycardia rate of 50 2p are 158 QRS 88 QTC 465. No acute ST changes appreciated at this time. MDM Narrative Medical decision making narrative: This is a 20-year-old female comes in with complaint of chronic abdominal pain and vomiting in the setting of heavy marijuana use. Patient was seen approximately a year ago symptoms that had resolved. Today she has had improvement with nausea medications such as Zofran but recurred while she was in the department. She has a nontender, benign abdominal exam with reassuring labs and a negative urine and point of care urine showing only ketones. Patient was given fluids. We are reviewing her labs and findings and during our evaluation she began to feel worse again. We tried some alternative medications which are patient appeared to have a reaction to. EKG was repeated, patient was given fluids and potassium was supplemented. Her symptoms resolved after Ativan and patient was signed out to Dr. Brian for final dispositiona Dr brian: Received turned over from day provider. Reviewed patient's history and physical and labs. Performed my own independent exam. Her potassium has been replaced. She has been ambulatory. Will send home with nausea medication and also instructions to follow-up with her primary doctor. She expressed understanding and agreement. <Henri Brian, DO - Last Filed: 03/03/21 09:54> Lab Data Labs: Lab Results 03/02/21 03/02/21 Range/Units 22:50 22:50 WBC 10.8 (4.5-11.0) X10^3/uL RBC 4.83 (4.0-5.2) X10^6/uL Hgb 13.5 (12.0-16.0) g/dL Hct 39.9 (36-46) % MCV 82.6 (80-100) fL MCH 27.8 (26-34) PG MCHC 33.7 (30-36) % RDW 13.5 (11.6-14.8) % Plt Count 315 (150-400) X10^3/uL Neut % (Auto) 70.6 (50-75) % Lymph % (Auto) 16.7 L (25-40) % Kendall % (Auto) 10.1 (3-14) % Eos % (Auto) 2.1 (2-4) % Baso % (Auto) 0.5 (0-2) % Neut # (Auto) 7700 H (1918-8117) /uL Lymph # (Auto) 1800 (9011-8818) /uL Kendall # (Auto) 1100 H (0-900) /uL Eos # (Auto) 200 (0-450) /uL Baso # (Auto) 100 (0-100) /uL Sodium 138 (137-145) mmol/L Potassium 3.1 L (3.4-5.1) mmol/L Chloride 107 (98-107) mmol/L Carbon Dioxide 19 L (22-32) mmol/L BUN 8 (7-17) mg/dL Creatinine 0.55 (0.52-1.04) mg/dL Estimated GFR > 60.0 (>60) mL/min BUN/Creatinine Ratio 14.5 (6-22) Glucose 121 H (70-100) mg/dL Calcium 9.6 (8.4-10.2) mg/dL Total Bilirubin 0.6 (0.2-1.3) mg/dL AST 29 (14-36) IU/L ALT 15 (<35) IU/L Alkaline Phosphatase 81 (38-126) U/L Total Protein 7.9 (6.3-8.2) g/dL Albumin 4.6 (3.5-5.0) g/dL Globulin 3.3 (1.7-4.1) g/dL Albumin/Globulin Ratio 1.4 (1.0-2.8) Lipase 101 (23-300) U/L Point of care testing: Point of Care Testing Test Results Negative Urine Dip Bedside Urine Glucose Negative Bedside Urine Bilirubin - Negative Bedside Urine Ketone + 15 Urine Specific [place] 1.025 Bedside Urine Occult Blood - Negative Bedside Urine pH 6 Bedside Urine Protein - Negative Bedside Urine Urobilinogen - Negative Bedside Urine Nitrite - Negative Bedside Urine Leukocytes - Negative Esterase MDM Narrative Medical decision making narrative: Dr brian: Received turned over from day provider. Reviewed patient's history and physical and labs. Performed my own independent exam. Her potassium has been replaced. She has been ambulatory. Will send home with nausea medication and also instructions to follow-up with her primary doctor. She expressed understanding and agreement. Discharge Plan Departure Patient Disposition: Home Clinical Impression: Vomiting, Abdominal pain, Hypokalemia Instructions: DI for Vomiting -- Adult Activity Restrictions/Additional Instructions: I do recommend that you contact your primary doctor for a follow-up. If you do not have a primary doctor you can contact the health human resources vice president at [phone]. Be sure to increase your fluid intake. Return to the emergency department for any new or worsening symptoms Prescriptions: New ondansetron 4 mg tablet,disintegrating 4 mg PO Q6H PRN (Reason: nausea and vomiting) Qty: 14 RF: 0 No Action albuterol sulfate [Proventil HFA] 90 MCG/PUFF HFA aerosol inhaler 0.09 mg IH PRN Qty: 0 RF: 0 quetiapine 100 mg tablet 100 mg PO RF: 0 Referrals: Luh Lane ARNP [Primary Care Provider] -
[2021-03-03] MEDS: ONDANSETRON 4 MG/2 ML INJ IV (03:35)
[2021-03-03] MEDS: PANTOPRAZOLE 40 MG VIAL IV (03:35)
--- NOTE | 2021-03-03 03:42 | DI.RAD.S_ITS ---
PROCEDURE: XR ACUTE ABDOMEN SERIES INDICATIONS: vomiting, epigastric pain, chest pain TECHNIQUE: One view chest and two views of the abdomen were acquired. COMPARISON: None. FINDINGS: Surgical changes and devices: None. Chest: Lungs are clear. Heart size is normal. No pleural effusions. No pneumoperitoneum. Abdomen: Scattered bowel gas. No dilated loops of bowel. No air-fluid levels. No suspicious calcifications. Visualized solid organ contours appear normal. Bones: No suspicious bony lesions. Minimal scoliosis. IMPRESSION: Nonobstructive bowel gas pattern. CT abdomen pelvis with IV contrast could be considered for further evaluation. No acute cardiopulmonary abnormality. This report is concordant with the overnight preliminary interpretation. Dictated by: Rigo Blount M.D. on 03/03/2021 at 8:07 Approved by: Rigo Blount M.D. on 03/03/2021 at 8:09
[2021-03-03] MEDS: diphenhydrAMINE 50 MG/ML VIAL 25 MG IV (04:56)
[2021-03-03] MEDS: HALOPERIDOL 5 MG/ML VIAL IV (04:56)
--- NOTE | 2021-03-03 05:03 | PC.NURSE ---
Pt began to have what appears to be an adverse reaction to one of the IV medications. She started getting very agitated, diaphoretic, and a crawling out of her skin sensation. MD brought to the bedside. Verbal order for 1mg Ativan. Pt calmed and RT called for a repeat EKG. A few minutes after the Ativan was given the pt states she feels sleepy but much better
[2021-03-03] MEDS: SODIUM CHLORIDE 0.9% 1,000 ML 1000 ML IV (05:08)
[2021-03-03] MEDS: LORazepam 2 MG/ML INJ 1 MG IV (05:10)
[2021-03-03] MEDS: POTASSIUM CHLORIDE IN WATER 10 MEQ/100 ML PIGGYBACK 100 MEQ IV ×4 (05:11→08:34)
== END 2021-03-03 10:08 | disposition home or self-care (01) ==
PROVIDERS: Emergency Medicine; Emergency Provider Emergency Medicine; PCP Registered Nurse
DX: E87.6 Hypokalemia (principal); R11.2 Nausea with vomiting, unspecified; R10.9 Unspecified abdominal pain
CPT/HCPCS: 36415; 74022; 80053; 81003; 81025; 83690; 85025; 93005; 96361; 96365; 96366; 96375; 96376; 99284; C9113; J1200; J1630; J2060; J2405

== ENCOUNTER 2021-03-03 20:48 | Emergency (ER) | payer OTHER, MEDICAID, SELFPAY ==
[2021-03-03 20:57] VITALS: BP 121/72; PULSE 98; RESP 20; TEMP 36.3; O2SAT 99
[2021-03-03] MEDS: DIPHENOXYLATE/ATROP 2.5/0.025 TABLET 2 EACH PO (21:04)
== END 2021-03-03 22:11 | disposition left against medical advice (07) ==
PROVIDERS: Emergency Provider Emergency Medicine; PCP Registered Nurse
CPT/HCPCS: 99283

== ENCOUNTER → 2022-02-24 16:59 | Outpatient (CLI) | payer OTHER, SELFPAY ==
[2022-02-24 18:12] LABS: Platelet Count 235 X10^3/uL (150-400)
[2022-02-24 18:27] LABS: BUN Creatinine Ratio 10.3 (6-22); Blood Urea Nitrogen 6 mg/dL (7-17); Calcium 8.8 mg/dL (8.4-10.2); Carbon Dioxide 28 mmol/L (22-32); Chloride 104 mmol/L (98-107); Estimated Glomerular Filt Rate > 60 mL/min (>60); Glucose 84 mg/dL (70-100); HEMOLYSIS < 15 (0-50); Sodium 139 mmol/L (137-145)
== END ==
PROVIDERS: PCP Registered Nurse Diabetes Educator; Referring Provider Dentist Oral and Maxillofacial Surgery; Visit Provider Dentist Oral and Maxillofacial Surgery
DX: E44.1 Mild protein-calorie malnutrition (principal)
CPT/HCPCS: 36415; 80048; 85049

== ENCOUNTER 2022-06-04 09:37 | Emergency (ER) | payer OTHER, MEDICAID, SELFPAY ==
[2022-06-04] VITALS (7 sets, daily range): BP systolic 120–137; BP diastolic 76–95; PULSE 45–99; RESP 13–32; O2SAT 91–100; BMI 19.2
[2022-06-04] MEDS: ONDANSETRON 4 MG ODT SL (10:25)
[2022-06-04 12:16] LABS: Add Manual Diff / Slide Review NO; Basophils Absolute Auto 0 /uL (0-100); Basophils Percent Auto 0.6 % (0-2); Eosinophils Absolute Auto 0 /uL (0-450); Eosinophils Percent Auto 0.4 % (2-4); Hematocrit 38.5 % (36-46); Hemoglobin 13.1 g/dL (12.0-16.0); Lymphocytes Absolute Auto 600 /uL (1100-4500); Lymphocytes Percent Auto 9.9 % (25-40); Mean Corpuscular HGB Conc 34.1 % (30-36); Mean Corpuscular Hemoglobin 28.5 PG (26-34); Mean Corpuscular Volume 83.5 fL (80-100); Monocytes Absolute Auto 400 /uL (0-900); Monocytes Percent Auto 5.9 % (3-14); Neutrophils Absolute Auto 5300 /uL (1500-7000); Neutrophils Percent Auto 83.2 % (50-75); Platelet Count 252 X10^3/uL (150-400); Red Blood Cell Count 4.61 X10^6/uL (4.0-5.2); Red Cell Distribution Width 13.5 % (11.6-14.8); White Blood Cell Count 6.4 X10^3/uL (4.5-11.0)
[2022-06-04 12:24] LABS: Alanine Aminotransferase 19 IU/L (<35); Albumin 4.6 g/dL (3.5-5.0); Albumin Globulin Ratio 1.4 (1.0-2.8); Alkaline Phosphatase 61 U/L (38-126); Aspartate Aminotransferase 24 IU/L (14-36); Bilirubin Total 0.8 mg/dL (0.2-1.3); Blood Urea Nitrogen 11 mg/dL (7-17); Calcium 9.5 mg/dL (8.4-10.2); Carbon Dioxide 21 mmol/L (22-32); Chloride 104 mmol/L (98-107); Estimated Glomerular Filt Rate > 60 mL/min (>60); Globulin 3.3 g/dL (1.7-4.1); Glucose 117 mg/dL (70-100); HEMOLYSIS < 15 (0-50); Lipase 109 U/L (23-300); Potassium 3.2 mmol/L (3.4-5.1); Sodium 140 mmol/L (137-145); Total Protein 7.9 g/dL (6.3-8.2)
--- NOTE | 2022-06-04 13:02 | ED_ITS ---
HPI - Abdominal Pain General Chief Complaint: Abdominal Pain Stated Complaint: Vomiting bile, abd pain all morning Time Seen by Provider: 06/04/22 13:01 Source: patient Mode of arrival: Ambulatory Limitations: no limitations History of Present Illness HPI narrative: This is a 21 year old female with history of intermittent abdominal pain and nausea vomiting who states she had EGD which showed gastritis about a year ago. Patient is on quetiapine for ADHD, PTSD and depression. She states this episode started this morning she does use marijuana, she uses nicotine but denies any IV drugs. She denies any other medications. No new surgeries. Patient uses occasional alcohol but not regularly. She is allergic to penicillin. She is accompanied by her roommate today. Patient denies fevers but has felt sweaty today. She denies chest pain or shortness of breath. Persistent vomiting she has pain but she states it started with the vomiting. She states she is had a bout normal bowel movement the last 24 hours, no diarrhea constipation, no black or bloody stools. Denies any urinary symptoms. Patient does note on her last visit she received a medication which she states made her wanted to pull out her IV and run away, she does not recall what it is called but she received multiple medications suspect it may have been Haldol. Related Data Home Medications Medication Instructions Recorded Confirmed quetiapine 200 mg tablet (Seroquel) 200 mg PO BEDTIME 11/24/21 12/16/21 bupropion HCl 300 mg 24 hr tablet, 300 mg PO QAM 11/28/21 12/16/21 extended release (Wellbutrin XL) Previous Rx's Medication Instructions Recorded famotidine 40 mg tablet (Pepcid) 40 mg PO DAILY #30 tabs 06/04/22 ondansetron 4 mg disintegrating 4 mg PO QID PRN nausea and 06/04/22 tablet vomiting #10 tabs Allergies Allergy/AdvReac Type Severity Reaction Status Date / Time aspirin [ASPIRIN] Allergy Intermediate Verified 12/16/21 13:30 penicillin G [PENICILLIN G] Allergy Intermediate Verified 12/16/21 13:30 horse dander Allergy Mild Verified 12/16/21 13:30 kiwi Allergy Mild swelling Verified 12/16/21 13:30 and tongue blisters Review of Systems Review of Systems ROS Unobtainable: All systems reviewed & are unremarkable except as noted in HPI and below Patient History Medical History ADHD Headache Heavy menstrual period (~2014) Irregular menstrual cycle (~2016) Migraines Osteopenia (~2018) Overdose Painful menstrual periods (~2014) Scoliosis (~2019) Shoulder pain (~2015) Suicidal intent Vasovagal syncope Family History Mother Ovarian cancer Social History Smoking Status: Current every day smoker Tobacco: How many years used: 3 Smokeless tobacco user: other (nicotine vape 6mg ) quit status: considering quitting alcohol intake: current (1 glass of wine / 3 months ) substance use type: marijuana (Uses for pain and anxiety ) Smoking Status: Current every day smoker tobacco type: vaping alcohol intake frequency: a few times a week Substance Use Type: marijuana Exam Narrative Exam Narrative: GENERAL: Alert and oriented x three, moderate distress patient is actively dry heaving when I walk into the room. HEENT: Head normocephalic, atraumatic, EOMI, pupils reactive, face symmetric, moist mucous membranes NECK: Supple, full range of motion CARDIOVASCULAR: Regular rate and rhythm without murmurs, rubs or gallops. RESPIRATORY: Breath sounds equal bilaterally, no wheezes rales or rhonchi. ABDOMEN: Soft, nontender. Nondistended. Normoactive bowel sounds all 4 quadrants. No guarding or rebound, rigidity, no mass : No CVA tenderness EXTREMITIES: Normal range of motion, no clubbing or edema. Neurovascularly intact NEUROLOGICAL: Cranial nerves II through XII grossly intact. Moving all extremities SKIN: Warm, dry, no petechiae, no rashes or lesions. Initial Vital Signs Initial Vital Signs: Vital Signs Pulse Rate 46 L 06/04/22 13:33 Pulse Oximetry 100 06/04/22 13:33 Course Orders Ordered: Discontinued Medications Diphenhydramine HCl (Diphenhydramine 50 Mg/Ml Vial) 50 mg IV NOW ONE Stop: 06/04/22 13:13 Last Admin: 06/04/22 13:31 Dose: 50 mg Documented By: DELBERT Haloperidol (Haloperidol 5 Mg/Ml Vial) 5 mg IV NOW ONE Stop: 06/04/22 13:07 Last Admin: 06/04/22 13:58 Dose: Not Given Documented By: NR Sodium Chloride (Normal Saline 0.9%) 1,000 mls @ 1,000 mls/hr IV BOLUS ONE Stop: 06/04/22 14:02 Last Infusion: 06/04/22 15:50 Dose: 0 mls/hr Documented By: Admin: 06/04/22 13:31 Dose: 1,000 mls/hr Documented By: DELBERT Sodium Chloride (Normal Saline 0.9%) 1,000 mls @ 1,000 mls/hr IV BOLUS ONE Stop: 06/04/22 15:50 Last Infusion: 06/04/22 16:50 Dose: 0 mls/hr Documented By: Admin: 06/04/22 15:51 Dose: 1,000 mls/hr Documented By: NR Lorazepam (Lorazepam 2 Mg/Ml Inj) 1 mg IV NOW ONE Stop: 06/04/22 14:52 Last Admin: 06/04/22 15:07 Dose: 1 mg Documented By: DELBERT Ondansetron HCl (Ondansetron 4 Mg Odt) 4 mg SL NOW ONE Stop: 06/04/22 10:24 Last Admin: 06/04/22 10:25 Dose: 4 mg Documented By: NR Pantoprazole Sodium (Pantoprazole 40 Mg Vial) 40 mg IV NOW ONE Stop: 06/04/22 13:13 Last Admin: 06/04/22 13:30 Dose: 40 mg Documented By: DELBERT Reevaluation(s) Reevaluation #1: Patient has small amount of clear liquid in emesis bag. States some help with prior medication. Will try additional dose. Will give 2nd liter of fluids, reviewed todays findings with patient and lorazepam IV Time: 14:51 Vital Signs Vital signs: Vital Signs - 8 hr 06/04/22 13:33 Pulse Rate 46 L Pulse Oximetry 100 MDM - Abdominal Pain Lab Data Result diagrams: 06/04/22 11:51 06/04/22 11:51 Labs: Lab Results 06/04/22 06/04/22 06/04/22 Range/Units 11:51 11:51 11:51 WBC 6.4 (4.5-11.0) X10^3/uL RBC 4.61 (4.0-5.2) X10^6/uL Hgb 13.1 (12.0-16.0) g/dL Hct 38.5 (36-46) % MCV 83.5 (80-100) fL MCH 28.5 (26-34) PG MCHC 34.1 (30-36) % RDW 13.5 (11.6-14.8) % Plt Count 252 (150-400) X10^3/uL Neut % (Auto) 83.2 H (50-75) % Lymph % (Auto) 9.9 L (25-40) % [place] % (Auto) 5.9 (3-14) % Eos % (Auto) 0.4 L (2-4) % Baso % (Auto) 0.6 (0-2) % Neut # (Auto) 5300 (4072-4426) /uL Lymph # (Auto) 600 L (7448-3573) /uL [place] # (Auto) 400 (0-900) /uL Eos # (Auto) 0 (0-450) /uL Baso # (Auto) 0 (0-100) /uL Sodium 140 (137-145) mmol/L Potassium 3.2 L (3.4-5.1) mmol/L Chloride 104 (98-107) mmol/L Carbon Dioxide 21 L (22-32) mmol/L BUN 11 (7-17) mg/dL Creatinine 0.61 (0.52-1.04) mg/dL Estimated GFR > 60 (>60) mL/min BUN/Creatinine Ratio 18.0 (6-22) Glucose 117 H (70-100) mg/dL Calcium 9.5 (8.4-10.2) mg/dL Total Bilirubin 0.8 (0.2-1.3) mg/dL AST 24 (14-36) IU/L ALT 19 (<35) IU/L Alkaline Phosphatase 61 (38-126) U/L Total Protein 7.9 (6.3-8.2) g/dL Albumin 4.6 (3.5-5.0) g/dL Globulin 3.3 (1.7-4.1) g/dL Albumin/Globulin Ratio 1.4 (1.0-2.8) Lipase 109 (23-300) U/L Serum , Qual Negative (Negative) ECG Data Attestation: I personally reviewed and interpreted this ECG as follows: Prior ECG tracings: available for review Interpretation: Sinus bradycardia rate of 57 WA 150 QRS 84 QTC of 473. No acute ST changes appreciated. Patient's V2 was inverted on prior but no other ST changes appreciated. MDM Narrative Medical decision making narrative: This is a 21-year-old female with intermittent abdominal pain and nausea vomiting. She is had EGD in the past which she states found gastritis. She does use marijuana regularly. She has not had any other recent infectious symptoms. Patient's labs show slightly low potassium, CBC does not show changes to platelets, hemoglobin or WBCs does have a leftward shift, bicarb is 21, glucose is 117 with normal LFTs. Patient had improvement with medications. She would like to return home although occasional dry heave. Does ask for prescription. Discharge Plan Departure Patient Disposition: Home Clinical Impression: Vomiting, Hypokalemia Instructions: DI for Vomiting -- Adult Activity Restrictions/Additional Instructions: Follow-up for recheck if her symptoms are not improving. You may take Zofran 1 tablet every 6 hours as needed. I would recommend taking Pepcid daily for gastritis. Prescription sent to [facility] in [place]. Please return for fevers, worsening symptoms, persistent vomiting, lightheade dness or passing out, black or bloody stools, if you are not having a bowel movements or passing any gas or flatus with persistent vomiting or other new or concerning changes. Prescriptions: New ondansetron 4 mg tablet,disintegrating 4 mg PO QID PRN (Reason: nausea and vomiting) Qty: 10 0RF famotidine [Pepcid] 40 mg tablet 40 mg PO DAILY Qty: 30 0RF No Action quetiapine [Seroquel] 200 mg tablet 200 mg PO BEDTIME bupropion HCl [Wellbutrin XL] 300 mg tablet extended release 24 hr 300 mg PO QAM Referrals: Berry Cedeno ARNP [Primary Care Provider] - Visit Report Forms: Patient Portal/API
--- NOTE | 2022-06-04 13:19 | DI.RAD.S_ITS ---
PROCEDURE: XR ACUTE ABDOMEN SERIES INDICATIONS: vomiting/abd pain TECHNIQUE: One view chest and two views of the abdomen were acquired. COMPARISON: [facility], CR, XR ACUTE ABDOMEN SERIES, 03/03/2021, 3:43. FINDINGS: Surgical changes and devices: None. Chest: Lungs are clear. Heart size is normal. No pleural effusions. No pneumoperitoneum. Abdomen: Bowel gas pattern is normal. No suspicious calcifications. Visualized solid organ contours appear normal. Bones: No suspicious bony lesions. IMPRESSION: Nonspecific bowel gas pattern. Dictated by: Henri Zuleta M.D. on 06/04/2022 at 14:39 Approved by: Henri Zuleta M.D. on 06/04/2022 at 14:40
[2022-06-04] MEDS: PANTOPRAZOLE 40 MG VIAL IV (13:30)
[2022-06-04] MEDS: diphenhydrAMINE 50 MG/ML VIAL IV (13:31)
[2022-06-04] MEDS: SODIUM CHLORIDE 0.9% 1,000 ML 1000 ML IV ×2 (13:31→15:51)
[2022-06-04] MEDS: LORazepam 2 MG/ML INJ 1 MG IV (15:07)
[2022-06-04 15:35] LABS: Pregnancy Test Serum,Qual Negative (Negative)
--- NOTE | 2022-06-04 16:56 | PC.NURSE ---
pt requests wheelchair to leave, charge nurse concerned why pt was able to walk in but not walk out. spoke with pt and md, pt states she is just feeling really tired and weak from meds and throwing up all day. md is okay with pt wheelchairing out
== END 2022-06-04 16:51 | disposition home or self-care (01) ==
PROVIDERS: Emergency Provider Emergency Medicine; PCP Registered Nurse Diabetes Educator
DX: E87.6 Hypokalemia (principal); R11.2 Nausea with vomiting, unspecified; R10.9 Unspecified abdominal pain
CPT/HCPCS: 36415; 74022; 80053; 83690; 84703; 85025; 93005; 93010; 96361; 96374; 96375; 99284; C9113; J1200; J2060

== ENCOUNTER → 2022-06-17 11:49 | Outpatient (CLI) | payer OTHER, MEDICAID, SELFPAY ==
[2022-06-17 12:48] LABS: Influenza A - CEPHEID Flu A POSITIVE (NEGATIVE); Influenza B - CEPHEID Flu B NEGATIVE (NEGATIVE); Respiratory Syncytial Virus Negative (Negative)
[2022-06-17 12:49] LABS: COVID-19 CEPHEID 4-PLEX PCR Negative (Negative)
== END ==
PROVIDERS: PCP Registered Nurse Diabetes Educator; Visit Provider Nurse Practitioner Family
DX: R05.9 Cough, unspecified (principal)
CPT/HCPCS: 0241U

== ENCOUNTER → 2023-11-29 13:25 | Outpatient (CLI) | payer OTHER, MEDICAID, SELFPAY | PROVIDERS: PCP Registered Nurse Diabetes Educator; Visit Provider Physician Assistant | DX: J02.9 Acute pharyngitis, unspecified (principal) | CPT/HCPCS: 87070 ==

== ENCOUNTER 2023-12-30 22:38 | Emergency (ER) | payer OTHER, MEDICAID, SELFPAY ==
[2023-12-30 22:45] VITALS: BP 125/80; PULSE 92; RESP 18; TEMP 35.8; O2SAT 100; BMI 22.1
[2023-12-31] MEDS: KETOROLAC 30 MG/ML VIAL IM (01:59)
== END 2023-12-31 03:23 | disposition left against medical advice (07) ==
PROVIDERS: Emergency Provider Emergency Medicine; PCP Registered Nurse Diabetes Educator
DX: M54.9 Dorsalgia, unspecified (principal)
CPT/HCPCS: 81003; 81025; 99283; J1885

== ENCOUNTER → 2024-01-03 15:04 | Outpatient (CLI) | payer OTHER, MEDICAID, SELFPAY ==
--- NOTE | 2024-01-03 15:06 | DI.RAD.S_ITS ---
PROCEDURE: XR LUMBAR SPINE MIN 4V INDICATIONS: Lumbar pain TECHNIQUE: 5 views of the lumbar spine were acquired, including bilateral oblique views. COMPARISON: None. FINDINGS: Bones: 5 nonrib-bearing vertebrae are present. Slight rightward curvature. No vertebral body compression fractures. No suspicious bony lesions. Soft tissues: Overlying bowel gas pattern is normal. No suspicious soft tissue calcifications. Oblique images: No pars defects. IMPRESSION: No acute bony abnormality. Dictated by: Gordon Padilla M.D. on 01/03/2024 at 15:53 Approved by: Gordon Padilla M.D. on 01/03/2024 at 15:54
== END ==
PROVIDERS: PCP Registered Nurse Diabetes Educator; Referring Provider Nurse Practitioner Family; Visit Provider Nurse Practitioner Family
DX: M54.50 Low back pain, unspecified (principal)
CPT/HCPCS: 72110

== ENCOUNTER → 2024-01-25 16:34 | Outpatient (CLI) | payer SELFPAY | PROVIDERS: PCP Registered Nurse Diabetes Educator; Visit Provider Nurse Practitioner Family | DX: J02.9 Acute pharyngitis, unspecified (principal) | CPT/HCPCS: 87070 ==

== ENCOUNTER → 2024-09-11 11:54 | Outpatient (CLI) | payer OTHER, SELFPAY | PROVIDERS: PCP Registered Nurse Diabetes Educator; Visit Provider Registered Nurse | DX: J02.9 Acute pharyngitis, unspecified (principal) | CPT/HCPCS: 87070 ==

== ENCOUNTER → 2025-05-15 14:48 | Outpatient (CLI) | payer OTHER, SELFPAY ==
[2025-05-15 15:32] LABS: Influenza A - CEPHEID Flu A NEGATIVE (NEGATIVE); Influenza B - CEPHEID Flu B NEGATIVE (NEGATIVE)
[2025-05-15 15:41] LABS: COVID-19 CEPHEID 4-PLEX PCR Negative (Negative)
== END ==
PROVIDERS: Visit Provider Nurse Practitioner Family
DX: R05.1 Acute cough (principal); J02.9 Acute pharyngitis, unspecified
CPT/HCPCS: 87070; 87637

== ENCOUNTER → 2025-05-29 17:41 | Outpatient (CLI) | payer OTHER, SELFPAY | PROVIDERS: Visit Provider Chiropractor | DX: J02.9 Acute pharyngitis, unspecified (principal) | CPT/HCPCS: 87070 ==

== ENCOUNTER 2025-06-25 22:45 | Emergency (ER) | payer OTHER, SELFPAY ==
[2025-06-25 22:51] VITALS: BP 117/60; PULSE 103; RESP 20; TEMP 38.9; O2SAT 97; BMI 25.8
--- NOTE | 2025-06-25 23:13 | ED.URI ---
HPI - URI/Sore Throat General Chief Complaint: Dental/Oral Stated Complaint: swollen lymph nodes in neck, sob, since am Time Seen by Provider: 06/25/25 23:07 Source: patient Mode of arrival: Ambulatory History of Present Illness HPI Narrative: Patient is a 24-year-old healthy person, uses they them pronouns, history of asthma presenting today with sore throat. Reports that they were feeling normal state of health yesterday. However today having sore throat and fever 103 here in triage. They are managing their own secretions no significant shortness of breath. But also reports using albuterol inhaler daily not on any kind of maintenance inhaler. No wheezing or chest tightness at this time. Records reviewed also show sore throat in April and May never treated with antibiotics. Treated as a viral URI Related Data Home Medications ?Medication ?Instructions ?Recorded ?Confirmed quetiapine 100 mg tablet 100 mg PO ONCE PM 01/03/24 06/25/25 Previous Rx's ?Medication ?Instructions ?Recorded inhalational spacing device #1 ea 06/17/22 (Aerochamber MV spacer) azithromycin 250 mg tablet See Rx Instructions PO .COMPLEX #6 06/26/25 tabs Allergies Allergy/AdvReac Type Severity Reaction Status Date / Time aspirin (ASPIRIN) Allergy Intermediate Verified 05/29/25 17:40 penicillin G (PENICILLIN G) Allergy Intermediate Verified 05/29/25 17:40 horse dander Allergy Mild Verified 05/29/25 17:40 kiwi Allergy Mild swelling Verified 05/29/25 17:40 and tongue blisters Patient History Medical History Migraines Headache ADHD Shoulder pain (~2014) Scoliosis (~2018) Osteopenia (~2019) Painful menstrual periods (~2015) Irregular menstrual cycle (~2016) Heavy menstrual period (~2014) Vasovagal syncope Suicidal intent Overdose Family History Mother Ovarian cancer Social History Tobacco: How many years used: 3 Smokeless tobacco user: other (nicotine vape 6mg ) quit status: considering quitting alcohol intake: current (1 glass of wine / 3 months ) substance use type: marijuana (Uses for pain and anxiety ) tobacco type: vaping alcohol intake frequency: a few times a week Exam Initial Vital Signs Initial Vital Signs: Vital Signs Temperature 102.0 F H 06/25/25 22:51 Pulse Rate 103 H 06/25/25 22:51 Respiratory Rate 20 06/25/25 22:51 Blood Pressure 117/60 06/25/25 22:51 Pulse Oximetry 97 06/25/25 22:51 Oxygen Delivery Method Room Air 06/25/25 22:51 GENERAL: Well-appearing, well-nourished and in no acute distress. HEENT: Head atraumatic,EOMI, pupils reactive, face symmetric, moist mucous membrane PHARYNX: Erythematous no uvula swelling no deviation no exudate managing secretions CARDIOVASCULAR: Regular rate and rhythm without murmurs, rubs or gallops. RESPIRATORY: Breath sounds equal bilaterally, no wheezes rales or rhonchi. He is in full sentences no respiratory distress EXTREMITIES: Normal range of motion, no clubbing or edema. Neurovascularly intact NEUROLOGICAL: Alert and oriented x4.Normal gait and speech. Cranial nerves II through XII grossly intact. SKIN: Warm, dry, no laceration, no petechiae, no rashes or lesions. Course Orders Ordered: ED Orders 06/25/25 23:05 Strep Grp A by PCR Rapid Stat 06/26/25 00:04 Throat Culture Stat 06/26/25 00:29 Chlamydia/Gonorrhea Pharyngeal Stat 06/26/25 00:30 Chlamydia Gonorrhea PCR -URINE Stat Ictotest Urine Stat Urine Microscopic Stat Discontinued Medications Acetaminophen (Acetaminophen 325 Mg Tablet) 975 mg PO NOW ONE Stop: 06/25/25 23:14 Last Admin: 06/25/25 23:15 Dose: 975 mg Documented By: AMOL Azithromycin (Azithromycin 250 Mg Tablet) 500 mg PO NOW ONE Stop: 06/26/25 00:09 Last Admin: 06/26/25 00:29 Dose: 500 mg Documented By: AMOL Vital Signs Vital signs: Vital Signs - 8 hr 06/25/25 22:51 06/26/25 00:08 06/26/25 00:54 Temperature 102.0 F H 100.5 F H Pulse Rate 103 H 98 H 81 Respiratory Rate 20 17 16 Blood Pressure 117/60 109/58 L 101/68 Pulse Oximetry 97 97 97 Oxygen Delivery Method Room Air Room Air Room Air MDM - URI/Sore Throat Lab Data Labs: Lab Results 06/25/25 06/26/25 Range/Units 23:05 00:30 Ur Bilirubin Confirm Negative (Negative) Urine RBC None seen (0-5/HPF) Urine WBC None seen (0-5/HPF) Ur Squamous Epith Cells 1-5 /hpf (0-5/HPF) Amorphous Sediment 1+ Urine Bacteria Occasional (0-1) (None) Urine Mucus 2+ H (Negative) Ur Culture Indicated? Cult not indicated Vol Urine Centrifuged 10ml (spun) Ur Chlamydia DNA (PCR) Not detected Group A Strep (PCR) Negative (Negative) N gonorrhoeae DNA (PCR) Not detected Point of Care Testing Test Results Negative Urine Dip Bedside Urine Glucose Negative Bedside Urine Bilirubin + 1 Bedside Urine Ketone +/- 5 Urine Specific [place] 1.020 Bedside Urine Occult Blood - Negative Bedside Urine pH 6.0 Bedside Urine Protein +/- 15 Bedside Urine Urobilinogen - Negative Bedside Urine Nitrite - Negative Bedside Urine Leukocytes - Negative Esterase MDM Narrative Medical decision making narrative: Patient 24-year-old female uses they them pronouns presenting to day with sore throat that started today. Febrile here in the ED. Also complained of some shortness of breath but is not in any kind of respiratory distress and has no wheezing no need for albuterol treatment at this time. Throat is erythematous without evidence of peritonsillar abscess or retropharyngeal abscess. Strep is negative culture is pending. Upon further questioning asked about oral sex. They report they are active had engaged 1 week ago. Has had ongoing sore throat. Never tested for gonorrhea chlamydia agrees and wishes to be tested today. Urinalysis and throat swab are collected Discussed with patient we will call with urinalysis results. Throat culture is a send out and this will take a few days. Treating for strep with azithromycin due to penicillin allergy. Urinalysis negative for UTI gonorrhea and chlamydia. I have called them and updated the bed regards to results. Discharge Plan Departure Patient Disposition: Home Clinical Impression: Pharyngitis Instructions: DI for Pharyngitis/Tonsillopharyngitis -- Adult Activity Restrictions/Additional Instructions: *You have been diagnosed with pharyngitis *What to do: At this time I will call you back with further results when I get them For further STD testing says it HIV and hepatitis he will need to talk to your primary care provider and/or go to public Health *Continue to take medications as directed Z-Rod take as directed Tylenol 1000 mg every 6 hours for ywhs-[id number]-mimbzyic pain Motrin 600 mg every 6 hours for [id number] pain *Follow up with your primary care provider in 2-3 days or call [phone] *Return to ER if you should have increasing throat pain difficulty swallowing or any new, worsening or concerning symptoms Prescriptions: New azithromycin 250 mg tablet See Rx Instructions PO .COMPLEX Qty: 6 0RF Rx Instructions: For 250 mg dose pack: take 500 mg today (day 1), then 250 mg for 4 days (days 2-5) No Action quetiapine 100 mg tablet 100 mg PO ONCE PM (DME) María Elena MV Spacer See Rx Instructions .ROUTE .MEDSUPPLY Qty: 1 0RF Rx Instructions: As directed Stand Alone Forms: Patient Portal/API
[2025-06-25] MEDS: ACETAMINOPHEN 325 MG TABLET 975 MG PO (23:15)
[2025-06-25 23:32] LABS: Strep Grp A by PCR Rapid Negative (Negative)
[2025-06-26 00:08] VITALS: BP 109/58; PULSE 98; RESP 17; TEMP 38.1; O2SAT 97
[2025-06-26] MEDS: AZITHROMYCIN 250 MG TABLET 500 MG PO (00:29)
[2025-06-26 00:54] VITALS: BP 101/68; PULSE 81; RESP 16; O2SAT 97
[2025-06-26 01:03] LABS: Ictotest Urine Negative (Negative)
[2025-06-26 01:04] LABS: Culture Indicated Urine Cult Not Indicated
[2025-06-26 02:12] LABS: Urine N gonorrhoeae NOT DETECTED
[2025-06-26 02:14] LABS: Urine Chlamydia NOT DETECTED
== END 2025-06-26 00:55 | disposition home or self-care (01) ==
PROVIDERS: Emergency Provider Emergency Medicine
DX: J02.9 Acute pharyngitis, unspecified (principal); R06.02 Shortness of breath; Z88.0 Allergy status to penicillin; F17.290 Nicotine dependence, other tobacco product, uncomplicated
CPT/HCPCS: 81003; 81015; 81025; 87070; 87147; 87491; 87591; 87651; 99283